=== PATIENT | female | born 1980 | race Two or more races ===

== ENCOUNTER 2018-06-07 09:58 | Outpatient (CLI) | payer OTHER | END 2018-06-07 10:08 | disposition home or self-care (01) | LOC: RAD 09:58 | DX: Z12.31 Encounter for screening mammogram for malignant neoplasm of breast (principal); N60.02 Solitary cyst of left breast; N60.01 Solitary cyst of right breast; R10.11 Right upper quadrant pain ==

== ENCOUNTER 2022-03-23 15:25 | Emergency (ER) | payer OTHER ==
[~2022-03-23] VITALS: Ht 170.2 cm; Wt 88.5 kg
== END 2022-03-23 22:25 | disposition home or self-care (01) ==
LOC: ER 15:25
DX: R10.13 Epigastric pain (principal); N20.0 Calculus of kidney; K76.0 Fatty (change of) liver, not elsewhere classified